=== PATIENT | female | born 1995 | race Caucasian/White ===

== ENCOUNTER 2019-02-18 17:30 | Emergency (ER) | payer OTHER ==
[2019-02-18 17:36] VITALS: BP 144/80; PULSE 84; RESP 18; TEMP 99
--- NOTE | 2019-02-18 21:19 | ED ---
Medical Decision Making - Medical Decision Making I did not need to assess patient, nurse performed task Disposition Clinical Impression: Encounter for blood-alcohol and blood-drug test Disposition: HOME SELF-CARE Condition: Good Is patient prescribed a controlled substance at d/c from ED?: No Referrals: Ricky Bullock MD [Primary Care Provider] - 1-2 days Time of Disposition: 21:18
== END 2019-02-18 18:17 | disposition home or self-care (01) ==
LOC: EC 17:30
DX: Z02.83 Encounter for blood-alcohol and blood-drug test (principal)

== ENCOUNTER 2019-08-09 13:00 | Emergency (ER) | payer OTHER ==
[2019-08-09 13:23] VITALS: RESP 16; TEMP 98.3
--- NOTE | 2019-08-09 14:10 | ED ---
Abdominal Pain HPI - General Chief Complaint: Abdominal Pain Stated Complaint: abdominal pain Time Seen by Provider: 08/09/19 14:07 Source: patient Mode of arrival: ambulatory Limitations: no limitations - History of Present Illness Initial Comments: 23-year-old female presented for chief complaint of abdominal bloating greasy stools right upper abdominal pain 6 days. Patient states she's had crampy upper abdominal pain that is worsening with food for the past 6 days. She states she has had chills but has not recorded a fever at home. She states she has taken her temperature. Patient states the cramping and bloating has persisted. Patient denies any bloody or melanotic stools. She does a chest pain shortness of breath. Patient denies any pelvic pain vaginal bleeding. Patient denies dysuria urgency frequency or flank pain. She describes the pain as crampy with some radiation towards the back. Denies any specific alleviating factors. Patient states she was so uncomfortable today while at school that she had to leave. Remaining review of system negative. Upon arrival patient appears well no signs of acute distress. Vital signs reveal elevation of blood pressure. - Related Data Home Medications Medication Instructions Recorded Confirmed Dony 1 tab PO HS 08/18/16 08/09/19 Allergies Allergy/AdvReac Type Severity Reaction Status Date / Time No Known Allergies Allergy Verified 08/09/19 13:32 Review of Systems ROS Statement: Those systems with pertinent positive or pertinent negative responses have been documented in the HPI. ROS Other: All systems not noted in ROS Statement are negative. Past Medical History Past Medical History: No Reported History History of Any Multi-Drug Resistant Organisms: None Reported Past Surgical History: Tonsillectomy Additional Past Surgical History / Comment(s): jaw surgery Past Psychological History: No Psychological Hx Reported Smoking Status: Never smoker Past Alcohol Use History: Occasional Past Drug Use History: None Reported General Exam - General Exam Comments Initial Comments: General: The patient is awake and alert, in no distress, and does not appear acutely ill. Eye: +3 mm pupils are equal, round and reactive to light, extra-ocular movements are intact. No nystagmus. There is normal conjunctiva bilaterally. No signs of icterus. Ears, nose, mouth and throat: There are moist mucous membranes and no oral lesions. Neck: The neck is supple, there is no tenderness or JVD. Cardiovascular: There is a regular rate and rhythm. No murmur, rub or gallop is appreciated. Respiratory: Lungs are clear to auscultation, respirations are non-labored, breath sounds are equal. No wheezes, stridor, rales, or rhonchi. Gastrointestinal: Soft, non-distended, abdomen is tender to palpation of the right upper quadrant without masses or organomegaly noted. There is no rebound or guarding present. Bowel sounds are unremarkable. Positive Alejandro sign. Musculoskeletal: Normal ROM, no tenderness. Strength 5/5. Sensation intact. Radial pulses equal bilaterally 2+. Neurological: A&O x 3. CN II-XII intact grossly, There are no obvious motor or sensory deficits. Coordination appears grossly intact. Speech is normal. Skin: Skin is warm and dry and no rashes or lesions are noted. Psychiatric: Cooperative, appropriate mood & affect, normal judgment. Limitations: no limitations Course Vital Signs 08/09/19 08/09/19 13:20 16:32 Temperature 98.3 F Pulse Rate 80 87 Respiratory 16 16 Rate Blood Pressure 144/93 131/76 O2 Sat by Pulse 99 99 Oximetry Medical Decision Making - Medical Decision Making 23 year female presents emergency department for evaluation of bloating abdominal pain 6 days. Patient has had greasy stools. Patient right upper quadrant tenderness and Alejandro sign. No fevers. Vital signs stable. Ultrasound revealed cholelithiasis with sludge and previous. I discussed the case with him provider Dr. Price including laboratory studies, imaging results, patient history and examination findings. He recommended outpatient surgical follow-up. I did personally contact patients preferred surgeons office staff, to arrange close f/u. They scheduled patient for 08/10/19 at 1030AM. Patient appears stable, there is no signs of acute cholecystitis including peristolic fluid, white count increase in alkaline phosphatase AST and ALTs and feel patient is stable for discharge with outpatient follow-up. Return Prevacid including worsening pain, fevers, or any other concerning signs or symptoms the patient return to the emergency department. She is agreeable to this care plan discharge at this time. - Lab Data Result diagrams: 08/09/19 14:55 08/09/19 14:55 Lab Results 08/09/19 08/09/19 08/09/19 Range/Units 14:00 14:00 14:55 WBC 10.3 (3.8-10.6) k/uL RBC 4.33 (3.80-5.40) m/uL Hgb 12.3 (11.4-16.0) gm/dL Hct 36.9 (34.0-46.0) % MCV 85.2 (80.0-100.0) fL MCH 28.4 (25.0-35.0) pg MCHC 33.3 (31.0-37.0) g/dL RDW 12.7 (11.5-15.5) % Plt Count 213 (150-450) k/uL Neutrophils % 81 % Lymphocytes % 11 % Monocytes % 5 % Eosinophils % 1 % Basophils % 0 % Neutrophils # 8.4 H (1.3-7.7) k/uL Lymphocytes # 1.1 (1.0-4.8) k/uL Monocytes # 0.5 (0-1.0) k/uL Eosinophils # 0.1 (0-0.7) k/uL Basophils # 0.0 (0-0.2) k/uL Sodium (137-145) mmol/L Potassium (3.5-5.1) mmol/L Chloride (98-107) mmol/L Carbon Dioxide (22-30) mmol/L Anion Gap mmol/L BUN (7-17) mg/dL Creatinine (0.52-1.04) mg/dL Est GFR (CKD-EPI)AfAm (>60 ml/min/1.73 sqM) Est GFR (CKD-EPI)NonAf (>60 ml/min/1.73 sqM) Glucose (74-99) mg/dL Calcium (8.4-10.2) mg/dL Total Bilirubin (0.2-1.3) mg/dL AST (14-36) U/L ALT (9-52) U/L Alkaline Phosphatase (38-126) U/L Total Protein (6.3-8.2) g/dL Albumin (3.5-5.0) g/dL Lipase (23-300) U/L Urine Color Yellow Urine Appearance Cloudy H (Clear) Urine pH 5.5 (5.0-8.0) Ur Specific [place] 1.022 (1.001-1.035) Urine Protein Trace H (Negative) Urine Glucose (UA) Negative (Negative) Urine Ketones Trace H (Negative) Urine Blood Trace H (Negative) Urine Nitrite Negative (Negative) Urine Bilirubin Negative (Negative) Urine Urobilinogen <2.0 (<2.0) mg/dL Ur Leukocyte Esterase Negative (Negative) Urine RBC 2 (0-5) /hpf Urine WBC 3 (0-5) /hpf Ur Squamous Epith Cells 5 H (0-4) /hpf Urine Bacteria Occasional H (None) /hpf Urine Mucus Moderate H (None) /hpf Urine HCG, Qual Not Detected (Not Detectd) 08/09/19 Range/Units 14:55 WBC (3.8-10.6) k/uL RBC (3.80-5.40) m/uL Hgb (11.4-16.0) gm/dL Hct (34.0-46.0) % MCV (80.0-100.0) fL MCH (25.0-35.0) pg MCHC (31.0-37.0) g/dL RDW (11.5-15.5) % Plt Count (150-450) k/uL Neutrophils % % Lymphocytes % % Monocytes % % Eosinophils % % Basophils % % Neutrophils # (1.3-7.7) k/uL Lymphocytes # (1.0-4.8) k/uL Monocytes # (0-1.0) k/uL Eosinophils # (0-0.7) k/uL Basophils # (0-0.2) k/uL Sodium 139 (137-145) mmol/L Potassium 3.7 (3.5-5.1) mmol/L Chloride 108 H (98-107) mmol/L Carbon Dioxide 21 L (22-30) mmol/L Anion Gap 10 mmol/L BUN 6 L (7-17) mg/dL Creatinine 0.61 (0.52-1.04) mg/dL Est GFR (CKD-EPI)AfAm >90 (>60 ml/min/1.73 sqM) Est GFR (CKD-EPI)NonAf >90 (>60 ml/min/1.73 sqM) Glucose 93 (74-99) mg/dL Calcium 9.0 (8.4-10.2) mg/dL Total Bilirubin 0.3 (0.2-1.3) mg/dL AST 27 (14-36) U/L ALT 20 (9-52) U/L Alkaline Phosphatase 67 (38-126) U/L Total Protein 7.2 (6.3-8.2) g/dL Albumin 3.9 (3.5-5.0) g/dL Lipase 56 (23-300) U/L Urine Color Urine Appearance (Clear) Urine pH (5.0-8.0) Ur Specific [place] (1.001-1.035) Urine Protein (Negative) Urine Glucose (UA) (Negative) Urine Ketones (Negative) Urine Blood (Negative) Urine Nitrite (Negative) Urine Bilirubin (Negative) Urine Urobilinogen (<2.0) mg/dL Ur Leukocyte Esterase (Negative) Urine RBC (0-5) /hpf Urine WBC (0-5) /hpf Ur Squamous Epith Cells (0-4) /hpf Urine Bacteria (None) /hpf Urine Mucus (None) /hpf Urine HCG, Qual (Not Detectd) Disposition Clinical Impression: Cholelithiasis Disposition: HOME SELF-CARE Condition: Good Instructions (If sedation given, give patient instructions): Cholecystitis (ED), Gallstones (ED) Additional Instructions: Please use medication as discussed. Please follow-up with general surgery tomorrow at 10:30AM in office--if symptoms worsen, or develop fever return to the ER. Please return to emergency room if the symptoms increase or worsen or for any other concerns. Is patient prescribed a controlled substance at d/c from ED?: No Referrals: Ricky Bullock MD [Primary Care Provider] - 1-2 days Antonina Lopez MD [STAFF PHYSICIAN] - 1-2 days Time of Disposition: 16:18
[2019-08-09 14:26] LABS: Appearance,Urine Cloudy (Clear); Bacteria,Urine Occasional /hpf; Bilirubin,Urine Negative (Negative); Blood,Urine Trace (Negative); Color,Urine Yellow; Glucose,Urine (UA) Negative (Negative); Ketones,Urine Trace (Negative); Leukocyte Esterase,Urine Negative (Negative); Mucus,Urine Moderate /hpf; Nitrite,Urine Negative (Negative); PH, Urine 5.5 (5.0-8.0); Protein,Urine Trace (Negative); RBC,Urine 2 /hpf (0-5); Specific Gravity,Urine 1.022 (1.001-1.035); Squamous Epithelial Cell,Urine 5 /hpf (0-4); Urobilinogen,Urine <2.0 mg/dL (<2.0); WBC,Urine 3 /hpf (0-5)
[2019-08-09 15:10] LABS: Basophils % (A) 0 %; Eosinophils # (A) 0.1 k/uL (0-0.7); Eosinophils % (A) 1 %; HCT 36.9 % (34.0-46.0); HGB 12.3 gm/dL (11.4-16.0); Lymphocytes # (A) 1.1 k/uL (1.0-4.8); Lymphocytes % (A) 11 %; MCH 28.4 pg (25.0-35.0); MCHC 33.3 g/dL (31.0-37.0); MCV 85.2 fL (80.0-100.0); Mean Platelet Volume 8.5; Monocytes # (A) 0.5 k/uL (0-1.0); Monocytes % (A) 5 %; Neutrophils # (A) 8.4 k/uL (1.3-7.7); Neutrophils % (A) 81 %; Platelet Count 213 k/uL (150-450); RBC 4.33 m/uL (3.80-5.40); RDW 12.7 % (11.5-15.5); WBC 10.3 k/uL (3.8-10.6)
[2019-08-09 15:17] LABS: ALT 20 U/L (9-52); AST 27 U/L (14-36); African American GFR (CKD) >90 (>60 ml/min/1.73 sqM); Albumin 3.9 g/dL (3.5-5.0); Alkaline Phosphatase 67 U/L (38-126); Anion Gap 10 mmol/L; Blood Urea Nitrogen 6 mg/dL (7-17); Carbon Dioxide 21 mmol/L (22-30); Chloride 108 mmol/L (98-107); Glucose 93 mg/dL (74-99); Potassium 3.7 mmol/L (3.5-5.1); Sodium 139 mmol/L (137-145); Total Bilirubin 0.3 mg/dL (0.2-1.3); Total Protein 7.2 g/dL (6.3-8.2)
--- NOTE | 2019-08-09 15:42 | US ---
EXAMINATION TYPE: US abdomen limited DATE OF EXAM: 08/09/2019 COMPARISON: NONE CLINICAL HISTORY: right sided tenderness, cramping/bloating, diarrhea. EXAM MEASUREMENTS: Liver Length: 15.0 cm Gallbladder Wall: 0.3 cm CBD: 0.4 cm Right Kidney: 11.5 x 3.6 x 4.4 cm Pancreas: visualized portions wnl Liver: wnl Gallbladder: There are a couple of small stones with shadowing, and there is floating debris/sludge within. Evidence for sonographic Alejandro's sign: Yes CBD: wnl Right Kidney: No hydronephrosis or masses seen There is no ascites. IMPRESSION: Cholelithiasis
[2019-08-09 16:33] VITALS: BP 131/76; PULSE 87
== END 2019-08-09 16:35 | disposition home or self-care (01) ==
LOC: EC 13:00
DX: K80.20 Calculus of gallbladder without cholecystitis without obstruction (principal); Z79.3 Long term (current) use of hormonal contraceptives
CPT/HCPCS: 36415; 76705; 80053; 81001; 81025; 83690; 85025; 99284

== ENCOUNTER 2019-08-16 07:02 | Day surgery (SDC) | payer OTHER ==
[2019-08-12 09:01] VITALS: BMI 25.0
--- NOTE | 2019-08-15 20:31 | P.GSHP ---
History of Present Illness H&P Date: 08/16/19 CHIEF COMPLAINT: Cholecystitis HISTORY OF PRESENT ILLNESS: The patient is a 23-year-old female who presents with history of epigastric including right upper quadrant abdominal pain. She underwent diagnostic studies for her gallbladder. Separately her clinical picture was consistent with cholecystitis. Now she presents for surgical intervention. PAST MEDICAL HISTORY: Please see list PAST SURGICAL HISTORY: Please see list MEDICATIONS: Please see list ALLERGIES: Denies. SOCIAL HISTORY: No illicit drug use or recent tobacco use FAMILY HISTORY: Pertinent for gallbladder disease REVIEW OF ORGAN SYSTEMS: CONSTITUTIONAL: No reports of fevers or chills. HEENT: Denies any troubles with the vision or hearing. ENDOCRINE: No reports of hypothyroidism. No diabetes. RESPIRATORY: No recent pneumonias. CARDIOVASCULAR: Denies chest pain or palpitations GI: No blood in stools or constipation. MUSCULOSKELETAL: Has occasional joint pain including back pain. NEURO: No seizure disorders or headaches. No recent stroke. PSYCH: No depression or suicidal ideation. GENITOURINARY: No active blood in urine. No urinary hesitancy. HEMATOLOGIC: No personal or family history of DVTs or pulmonary emboli. SKIN: No skin cancer. PHYSICAL EXAM: VITAL SIGNS: Afebrile vital signs stable GENERAL: Well-developed pleasant in no acute distress. HEENT: No scleral icterus. Extraocular movements grossly intact. Moist buccal mucosa. NECK: Supple without lymphadenopathy. CHEST: Unlabored respirations. Equal bilateral excursions. CARDIOVASCULAR: Regular rate regular rhythm rhythm. Distal 2+ pulses. ABDOMEN: Soft, nondistended. Tender along the epigastrium and right upper quadrant. MUSCULOSKELETAL: No clubbing, cyanosis, or edema. NEURO: Cranial nerves II to XII within normal limits. No focal or lateralizing signs. PSYCH: Alert and oriented to person, place and time. SKIN: Well-perfused good skin turgor. ASSESSMENT: 1. Epigastric and right upper quadrant abdominal pain 2. Chronic cholecystitis 3. Symptomatic gallstones. PLAN: 1. Will need a robotic cholecystectomy possible open. Benefits and risks were described. 2. Heparin for DVT prophylaxis 5000 units. 3. Antibiotic prophylaxis. Past Medical History Past Medical History: No Reported History Additional Past Medical History / Comment(s): migraines, gallstones, History of Any Multi-Drug Resistant Organisms: None Reported Past Surgical History: Tonsillectomy Additional Past Surgical History / Comment(s): jaw surgery Past Anesthesia/Blood Transfusion Reactions: No Reported Reaction Smoking Status: Never smoker - Past Family History Mother Family Medical History: No Reported History Medications and Allergies Home Medications Medication Instructions Recorded Confirmed Type Dony 1 tab PO HS 08/18/16 08/12/19 History Allergies Allergy/AdvReac Type Severity Reaction Status Date / Time No Known Allergies Allergy Verified 08/12/19 08:55
[~2019-08-16 07:02] MED LIST: ACETAMINOPHEN IV (For NPO) 1,000 MG in EMPTY BAG 1 BAG IVPB ONE; HEPARIN SODIUM,PORCINE 5,000 UNIT/ML 1 ML VIAL SQ ONE; INDOCYANINE GREEN 25 MG VIAL IV STA
[2019-08-16 07:28] VITALS: TEMP 99.2
[2019-08-16] MEDS ORDERED: ONDANSETRON 4 MG/2 ML VIAL IVP ONE (07:28)
[2019-08-16] MEDS ORDERED: LACTATED RINGERS 1,000 ML IV ONE ×2 (07:28→10:15)
[2019-08-16] MEDS ORDERED: DEXAMETHASONE SOD PHOS (MDV) 100 MG/10 ML VIAL IVP ONE (07:29)
[2019-08-16] MEDS ORDERED: LIDOCAINE 1% 20 ML VIAL (10MG/ML) FOR IV START INTRADERMA ONE (07:29)
[2019-08-16 07:43] LABS: Basophils # (A) 0.1 k/uL (0-0.2); Basophils % (A) 0 %; Eosinophils # (A) 0.2 k/uL (0-0.7); Eosinophils % (A) 1 %; HCT 37.2 % (34.0-46.0); HGB 12.8 gm/dL (11.4-16.0); Lymphocytes # (A) 1.7 k/uL (1.0-4.8); Lymphocytes % (A) 12 %; MCHC 34.3 g/dL (31.0-37.0); MCV 81.7 fL (80.0-100.0); Mean Platelet Volume 8.6; Monocytes # (A) 0.4 k/uL (0-1.0); Monocytes % (A) 3 %; Neutrophils # (A) 11.6 k/uL (1.3-7.7); Neutrophils % (A) 82 %; Platelet Count 273 k/uL (150-450); RBC 4.55 m/uL (3.80-5.40); RDW 12.3 % (11.5-15.5); WBC 14.1 k/uL (3.8-10.6)
[2019-08-16 07:48] LABS: ALT 21 U/L (9-52); AST 26 U/L (14-36); African American GFR (CKD) >90 (>60 ml/min/1.73 sqM); Albumin 4.1 g/dL (3.5-5.0); Alkaline Phosphatase 68 U/L (38-126); Anion Gap 11 mmol/L; Blood Urea Nitrogen 6 mg/dL (7-17); Calcium 9.4 mg/dL (8.4-10.2); Carbon Dioxide 21 mmol/L (22-30); Chloride 108 mmol/L (98-107); Glucose 100 mg/dL (74-99); Potassium 3.6 mmol/L (3.5-5.1); Sodium 140 mmol/L (137-145); Total Bilirubin 0.6 mg/dL (0.2-1.3); Total Protein 7.5 g/dL (6.3-8.2)
[2019-08-16] MEDS ORDERED: MIDAZOLAM (PF) 2 MG/2 ML VIAL IVP ONE (07:50)
[2019-08-16] MEDS ORDERED: GLYCOPYRROLATE 0.2 MG/ML 2 ML VIAL ONE (07:59)
[2019-08-16] MEDS ORDERED: SUCCINYLCHOLINE CHLORIDE 100 MG/5 ML SYR IV ONE (07:59)
[2019-08-16] MEDS ORDERED: ceFAZolin 1,000 MG VIAL ONE (07:59)
[2019-08-16] MEDS ORDERED: INDOCYANINE GREEN 25 MG VIAL IV ONE (07:59)
[2019-08-16] MEDS ORDERED: ROCURONIUM BROMIDE 10 MG/ML 10 ML VIAL IV ONE (07:59)
[2019-08-16] MEDS ORDERED: fentaNYL (PF) 50 MCG/ML 2 ML AMP ONE (07:59)
[2019-08-16] MEDS ORDERED: NEOSTIGMINE 1 MG/ML 10 ML VIAL ONE (07:59)
[2019-08-16] MEDS ORDERED: KETOROLAC 30 MG/ML 1 ML VIAL ONE (07:59)
[2019-08-16] MEDS ORDERED: MIDAZOLAM 2 MG/2 ML VIAL ONE (07:59)
[2019-08-16] MEDS ORDERED: PROPOFOL 10 MG/ML 20 ML VIAL IV ONE (07:59)
[2019-08-16] MEDS ORDERED: LIDOCAINE 1% INJ 10MG/ML (20 ML MDV) ONE (07:59)
[2019-08-16] MEDS ORDERED: LIDOCAINE 1%-EPI 1:100,000 20 ML VIAL SQ ONE (08:22)
[2019-08-16] MEDS: HYDROmorphone 1 MG/ML 1 ML SYRINGE IVP ONE ×2 (09:19→09:37)
--- NOTE | 2019-08-16 09:30 | P.OP ---
Date of Procedure: 08/16/19 Description of Procedure: SURGEON: ANTONINA LOPEZ MD PREOPERATIVE DIAGNOSES: 1. Right upper quadrant abdominal pain 2. History of gallstones 3. History of migraines POSTOPERATIVE DIAGNOSES: 1. Right upper quadrant abdominal pain 2. History of gallstones 3. History of migraines 4. Peritoneal adhesions, right upper quadrant OPERATION: 1. Robotic-assisted da Myriam Xi laparoscopic lysis of adhesions 2. Robotic-assisted da Myriam Xi laparoscopic cholecystectomy, multiport with FIREFLY ESTIMATED BLOOD LOSS: 5 mL. SPECIMENS REMOVED: Gallbladder. COMPLICATIONS: None. OPERATIVE FINDINGS: 1. Chronic cholecystitis 2. Console time 19 minutes INDICATIONS: The patient is a 23-year-old female who presents with cholelcystitis. Surgical intervention with a laparoscopic cholecystectomy was described at length including injury to the biliary tree, bleeding, infection, need for further surgery. Informed consent was obtained. Robotic assisted laparoscopic approach was described. Benefits and risks of the procedure including but not limited to bleeding, infection, injury to the biliary tree was described. Informed consent was obtained. DESCRIPTION OF PROCEDURE: Patient was brought to the operating room, placed in supine position. After general induction, the abdomen had been prepped and draped in standard sterile fashion. The robotic da Myriam XI system was primed. After a timeout protocol was performed, the patient had been prepped and draped in standard sterile fashion. The patient was injected with indocyanine green. A 5 mm 0 degrees laparoscopic trocar entry was performed along the left upper quadrant. The abdomen insufflated to 15 mmHg pressure which was tolerated well. Diagnostic laparoscopy demonstrated no injury to bowel viscera or mesentery. The liver surface was unremarkable. Next, two 8 mm robotic ports were placed along the right upper abdomen. The camera 8-mm port was maintained along the epigastrium. Another 8 mm port was placed along the left upper abdominal wall after exchanging the 5 mm port. Please note that the ports were placed at least 10 to 15 cm away from the target anatomy of the gallbladder. The robot was docked along the left lateral abdomen. The patient was repositioned in reverse Trendelenburg position. Using a grasper for arm 3, a grasper for arm 4, including hook cautery for arm 1, the robotic system was docked and primed as described. Instruments were interchanged by the dairy and food laboratory assistant including hook cautery, Bovie cautery and clip appliers. I had sat at the console. Moderate peritoneal adhesions of omentum to the body and infundibulum the gallbladder was found to addressed using hook cautery. Lysis of adhesions occurred over 15 minutes. The gallbladder fundus was retracted over the dome of the liver. Initial attention was brought to the infundibulum which was gently retracted in the inferior lateral approach. Using a grasper, the cystic duct including the cystic artery was carefully skeletonized. FIREFLY was used to identify the cystic artery and cystic structures. A critical view of safety was obtained. Large PLASTIC clips were used throughout the entire case. Using a clip teasel gig operator 2 clips were placed proximally, and 1 clip was placed between the infundibulum and cystic duct and divided using cautery. Next, the cystic artery was similarly clipped and cauterized. Electro-Bovie cautery was used to remove the gallbladder from the hepatic fossa. Hemostasis was checked and found to be adequate. The robot was undocked. I re-scrubbed into the case. Using a 10 mm Endo Catch bag via the left upper quadrant incision, the specimen was removed from the abdominal cavity. All pneumoperitoneum instruments were evacuated from the abdominal cavity. The incisions were reapproximated using 4-0 Monocryl in an interrupted subcuticular fashion. Fascial defects were less than 8 mm in size. Please note along the trocar sites, local anesthetic was placed as a field block prior to insertion of all instruments. Liquid glue was applied to the skin. At the end of the procedure needle, sponge, and instrument count had been verified correct by the registered nurse surgical services. The patient was transferred to postanesthesia care unit in stable condition. Intraoperative films were shared with the patient's family who were very pleased with the level of care. Plan - Discharge Summary Discharge Rx Participant: Yes New Discharge Prescriptions: New Ibuprofen [Motrin] 600 mg PO Q8HR PRN #30 tab PRN Reason: Pain Acetaminophen Tab [Tylenol Tab] 500 mg PO Q6H PRN #30 tablet PRN Reason: Pain No Action Juleber 1 tab PO HS Discharge Medication List Juleber 1 tab PO HS 08/18/16 [History] Acetaminophen Tab [Tylenol Tab] 500 mg PO Q6H PRN #30 tablet 08/16/19 [Rx] Ibuprofen [Motrin] 600 mg PO Q8HR PRN #30 tab 08/16/19 [Rx] Follow up Appointment(s)/Referral(s): Antonina Lopez MD [STAFF PHYSICIAN] - 08/24/19 Patient Instructions/Handouts: Laparoscopic Cholecystectomy (DC), Low Fat Diet (DC) Activity/Diet/Wound Care/Special Instructions: No lifting over 10 pounds for 10 days until 08/26/2019. May shower. No bath tub soaks until 08/26/2019. No return to work or school until cleared by surgeon. Use ice for incision. Discharge Disposition: HOME SELF-CARE
[2019-08-16 12:03] VITALS: RESP 20
[2019-08-16 13:10] VITALS: BP 119/74; PULSE 80
[2019-08-16] MEDS ORDERED: ACETAMINOPHEN TAB 500 MG TAB PO ONE (13:33)
== END 2019-08-16 14:20 | disposition home or self-care (01) ==
LOC: OR 07:02
PROVIDERS: ATTEND Surgery Plastic and Reconstructive Surgery
DX: K80.10 Calculus of gallbladder with chronic cholecystitis without obstruction (principal); G43.909 Migraine, unspecified, not intractable, without status migrainosus; Z79.3 Long term (current) use of hormonal contraceptives; K66.0 Peritoneal adhesions (postprocedural) (postinfection)
CPT/HCPCS: 81025; 88304; 80053; 85025; 47562; J2250 ×2; J1644; J2710; J2405; J0690; J2001; J3010; J1885; J1170; J1100; J0131; J0330; J2704

== ENCOUNTER → 2020-12-26 | Outpatient (CLI) | payer BC ==
[2020-12-26 21:37] LABS: Basophils # (A) 0.03 X 10*3/uL (0.00-0.10); Basophils % (A) 0.7 %; Eosinophils # (A) 0.07 X 10*3/uL (0.04-0.35); Eosinophils % (A) 1.6 %; HCT 38.7 % (37.2-46.3); HGB 12.4 g/dL (12.0-15.0); Lymphocytes # (A) 1.39 X 10*3/uL (0.90-5.00); Lymphocytes % (A) 31.9 %; MCH 27.3 pg (27.0-32.0); MCV 85.1 fL (80.0-97.0); Monocytes # (A) 0.45 X 10*3/uL (0.20-1.00); Monocytes % (A) 10.3 %; Neutrophils # (A) 2.41 X 10*3/uL (1.80-7.70); Neutrophils % (A) 55.3 %; Platelet Count 173 X 10*3/uL (140-440); RBC 4.55 X 10*6/uL (4.10-5.20); RDW 12.8 % (11.5-14.5); WBC 4.36 X 10*3/uL (4.50-10.00)
[2020-12-26 22:11] LABS: DNA Double-Stranded NEGATIVE (NEGATIVE); Gliadin AB IgA, Deaminated NEGATIVE (NEGATIVE); Gliadin AB IgA, Unit 3.1 U/mL; Gliadin AB IgG, Deaminated NEGATIVE (NEGATIVE)
[2020-12-26 22:12] LABS: Egg White IgE <0.10 kU/L
[2020-12-26 22:13] LABS: Codfish IgE <0.10 kU/L; Peanut IgE <0.10 kU/L; Soybean IgE <0.10 kU/L
[2020-12-26 22:14] LABS: Clam IgE <0.10 kU/L; Shrimp IgE <0.10 kU/L; Walnut IgE (Food) <0.10 kU/L
[2020-12-26 22:15] LABS: Scallop IgE <0.10 kU/L
[2020-12-26 22:21] LABS: African American GFR (CKD) 103.7 (60.0-200.0); Albumin 4.7 g/dL (3.80-4.90); Albumin/Globulin Ratio 1.96 (1.60-3.17); Anion Gap 9.6 mmol/L (4.00-12.00); BUN/Creat Ratio 13.33 Ratio (12.00-20.00); C Reactive Protein, High Sens 2.87 mg/L (0.000-3.000); Calcium 9.5 mg/dL (8.7-10.3); Carbon Dioxide 23.4 mmol/L (21.6-31.8); Globulin 2.4 g/dL (1.6-3.3); Non-African American GFR(CKD) 89.5 (60.0-200.0); Potassium 4.1 mmol/L (3.5-5.5); Total Bilirubin 0.4 mg/dL (0.3-1.2); Total Protein 7.1 g/dL (6.2-8.2)
[2020-12-26 22:29] LABS: T4, Free (Free Thyroxine) 1.1 ng/dL (0.80-1.80)
[2020-12-26 23:02] LABS: Erythrocyte Sedimentation Rate 12 mm/Hr (0-20)
== END | disposition home or self-care (01) ==
LOC: LABWHC1 13:52
PROVIDERS: ATTEND Family Medicine
DX: Z13.220 Encounter for screening for lipoid disorders (principal); R53.82 Chronic fatigue, unspecified; R63.4 Abnormal weight loss; R61 Generalized hyperhidrosis; R10.9 Unspecified abdominal pain
CPT/HCPCS: 36415; 80053; 82150; 82306; 82607; 82785; 83516; 84439; 84443; 84481; 85025; 85652; 86003; 86038; 86039; 86141; 86225; 86480; 86800

== ENCOUNTER 2021-05-23 22:28 | Emergency (ER) | payer BC ==
[2021-05-23 22:32] VITALS: TEMP 98.4
--- NOTE | 2021-05-23 23:12 | ED ---
General Adult HPI - General Chief complaint: Vaginal Bleeding Stated complaint: bleeding,5 weeks Time Seen by Provider: 05/23/21 22:36 Source: patient Mode of arrival: ambulatory Limitations: no limitations - History of Present Illness Initial comments: 25 year-old female patient who is approximately 5-6 weeks presents to the emergency department today for evaluation of vaginal bleeding. Patient states she started having light spotting that was pink in color about a week ago. Found that she did have a yeast infection and has been doing vaginal suppositories given to her by her physician. States today the blood changed to bright red in color and she noticed small blood clots. She has not had to wear a pad, states she has been having blood on the toilet paper only. She reports mild suprapubic cramping. Denies any low back pain. Denies any fever or chills per denies any hematuria, dysuria, urinary frequency, urinary urgency. Patient denies any fever, chills, nausea, vomiting, diarrhea, constipation, or any other complaints. - Related Data Home Medications Medication Instructions Recorded Confirmed Juleber 1 tab PO HS 08/18/16 08/16/19 Previous Rx's Medication Instructions Recorded Acetaminophen Tab [Tylenol Tab] 500 mg PO Q6H PRN #30 tablet 08/16/19 Ibuprofen [Motrin] 600 mg PO Q8HR PRN #30 tab 08/16/19 Allergies Allergy/AdvReac Type Severity Reaction Status Date / Time No Known Allergies Allergy Verified 08/12/19 08:55 Review of Systems ROS Statement: Those systems with pertinent positive or pertinent negative responses have been documented in the HPI. ROS Other: All systems not noted in ROS Statement are negative. Past Medical History Past Medical History: No Reported History Additional Past Medical History / Comment(s): migraines, gallstones, History of Any Multi-Drug Resistant Organisms: None Reported Past Surgical History: Tonsillectomy Additional Past Surgical History / Comment(s): jaw surgery Past Anesthesia/Blood Transfusion Reactions: No Reported Reaction Past Psychological History: No Psychological Hx Reported Smoking Status: Never smoker Past Alcohol Use History: Occasional Past Drug Use History: None Reported - Past Family History Mother Family Medical History: No Reported History General Exam Limitations: no limitations General appearance: alert, in no apparent distress, other (Physical well- developed, well-nourished adult female patient in no acute distress. Vital signs upon presentation temperature 98.4F, pulse 66, respirations 18, blood pressure 127/82, pulse ox 100% on room air.) ENT exam: Present: normal exam, normal oropharynx, mucous membranes moist Respiratory exam: Present: normal lung sounds bilaterally. Absent: respiratory distress, wheezes, rales, rhonchi, stridor Cardiovascular Exam: Present: regular rate, normal rhythm, normal heart sounds. Absent: systolic murmur, diastolic murmur, rubs, gallop, clicks GI/Abdominal exam: Present: soft, normal bowel sounds. Absent: distended, tenderness, guarding, rebound, rigid Neurological exam: Present: alert, oriented X3, CN II-XII intact Psychiatric exam: Present: normal affect, normal mood Skin exam: Present: warm, dry, intact, normal color. Absent: rash Course Vital Signs 05/23/21 05/24/21 22:30 00:37 Temperature 98.4 F Pulse Rate 66 71 Respiratory 18 16 Rate Blood Pressure 127/82 123/72 O2 Sat by Pulse 100 98 Oximetry Medical Decision Making - Medical Decision Making 25 year-old female patient present for evaluation of vaginal bleeding with passage of tiny blood clots. She states she is 5-6 weeks . LMP beginning of April. . Physical examination is unremarkable. Labs reviewed and showed hCG level 51. ABO is A+. Ultrasound obtained and showed possible tiny intrauterine gestational sac. No evidence for ectopic . Did discuss findings with the patient. Discussed possibility of miscarriage. She is given lab slip to have hormone redrawn in 2 days. She is instructed to contact her OBGYN for further instructions tomorrow morning. Return parameters were discussed in detail. She verbalizes understanding and agrees with this plan. Case discussed with my attending Dr. Choe. - Lab Data Result diagrams: 05/23/21 22:57 05/23/21 22:57 Lab Results 05/23/21 05/23/21 05/23/21 Range/Units 22:57 22:57 22:57 WBC 7.6 (3.8-10.6) k/uL RBC 4.56 (3.80-5.40) m/uL Hgb 13.2 (11.4-16.0) gm/dL Hct 40.2 (34.0-46.0) % MCV 88.1 (80.0-100.0) fL MCH 29.0 (25.0-35.0) pg MCHC 32.9 (31.0-37.0) g/dL RDW 13.4 (11.5-15.5) % Plt Count 201 (150-450) k/uL MPV 9.9 Neutrophils % 66 % Lymphocytes % 25 % Monocytes % 5 % Eosinophils % 2 % Basophils % 1 % Neutrophils # 5.0 (1.3-7.7) k/uL Lymphocytes # 1.9 (1.0-4.8) k/uL Monocytes # 0.4 (0-1.0) k/uL Eosinophils # 0.1 (0-0.7) k/uL Basophils # 0.1 (0-0.2) k/uL Sodium 140 (137-145) mmol/L Potassium 3.8 (3.5-5.1) mmol/L Chloride 105 (98-107) mmol/L Carbon Dioxide 26 (22-30) mmol/L Anion Gap 9 mmol/L BUN 5 L (7-17) mg/dL Creatinine 0.67 (0.52-1.04) mg/dL Est GFR (CKD-EPI)AfAm >90 (>60 ml/min/1.73 sqM) Est GFR (CKD-EPI)NonAf >90 (>60 ml/min/1.73 sqM) Glucose 98 (74-99) mg/dL Calcium 9.2 (8.4-10.2) mg/dL Total Bilirubin 0.2 (0.2-1.3) mg/dL AST 29 (14-36) U/L ALT 18 (4-34) U/L Alkaline Phosphatase 64 (38-126) U/L Total Protein 6.8 (6.3-8.2) g/dL Albumin 4.3 (3.5-5.0) g/dL HCG, Quant 51.9 mIU/mL Urine Color Yellow Urine Appearance Clear (Clear) Urine pH 7.5 (5.0-8.0) Ur Specific [place] 1.001 (1.001-1.035) Urine Protein Trace H (Negative) Urine Glucose (UA) Negative (Negative) Urine Ketones Negative (Negative) Urine Blood Large H (Negative) Urine Nitrite Negative (Negative) Urine Bilirubin Negative (Negative) Urine Urobilinogen <2.0 (<2.0) mg/dL Ur Leukocyte Esterase Moderate H (Negative) Urine RBC 2 (0-5) /hpf Urine WBC 4 (0-5) /hpf Ur Squamous Epith Cells <1 (0-4) /hpf Urine Bacteria Occasional H (None) /hpf Blood Type Blood Type Recheck Bld Type Recheck Status 05/23/21 Range/Units 22:57 WBC (3.8-10.6) k/uL RBC (3.80-5.40) m/uL Hgb (11.4-16.0) gm/dL Hct (34.0-46.0) % MCV (80.0-100.0) fL MCH (25.0-35.0) pg MCHC (31.0-37.0) g/dL RDW (11.5-15.5) % Plt Count (150-450) k/uL MPV Neutrophils % % Lymphocytes % % Monocytes % % Eosinophils % % Basophils % % Neutrophils # (1.3-7.7) k/uL Lymphocytes # (1.0-4.8) k/uL Monocytes # (0-1.0) k/uL Eosinophils # (0-0.7) k/uL Basophils # (0-0.2) k/uL Sodium (137-145) mmol/L Potassium (3.5-5.1) mmol/L Chloride (98-107) mmol/L Carbon Dioxide (22-30) mmol/L Anion Gap mmol/L BUN (7-17) mg/dL Creatinine (0.52-1.04) mg/dL Est GFR (CKD-EPI)AfAm (>60 ml/min/1.73 sqM) Est GFR (CKD-EPI)NonAf (>60 ml/min/1.73 sqM) Glucose (74-99) mg/dL Calcium (8.4-10.2) mg/dL Total Bilirubin (0.2-1.3) mg/dL AST (14-36) U/L ALT (4-34) U/L Alkaline Phosphatase (38-126) U/L Total Protein (6.3-8.2) g/dL Albumin (3.5-5.0) g/dL HCG, Quant mIU/mL Urine Color Urine Appearance (Clear) Urine pH (5.0-8.0) Ur Specific [place] (1.001-1.035) Urine Protein (Negative) Urine Glucose (UA) (Negative) Urine Ketones (Negative) Urine Blood (Negative) Urine Nitrite (Negative) Urine Bilirubin (Negative) Urine Urobilinogen (<2.0) mg/dL Ur Leukocyte Esterase (Negative) Urine RBC (0-5) /hpf Urine WBC (0-5) /hpf Ur Squamous Epith Cells (0-4) /hpf Urine Bacteria (None) /hpf Blood Type A Positive Blood Type Recheck No Previous Record Bld Type Recheck Status ABR ONLY - Radiology Data Radiology results: report reviewed, image reviewed Ultrasound was obtained. Report was reviewed in its entirety. Impression by Dr. Canela shows possible tiny intrauterine gestational sac. Follow-up exam recommended 10-14 days to confirm fetus. I do not see evidence for ectopic . Disposition Clinical Impression: Vaginal bleeding affecting early Disposition: HOME SELF-CARE Condition: Good Instructions (If sedation given, give patient instructions): Threatened Miscarriage (ED), (ED) Additional Instructions: Follow-up to have your hormone level be drawn in 2 days. Call your OBGYN in the morning for further instructions and possible sooner appointment. Return to the emergency department for any new, worsening, or concerning symptoms. Is patient prescribed a controlled substance at d/c from ED?: No Referrals: Ricky Bullock MD [Primary Care Provider] - 1-2 days Time of Disposition: 00:59
[2021-05-23 23:19] LABS: Appearance,Urine Clear (Clear); Bacteria,Urine Occasional /hpf; Bilirubin,Urine Negative (Negative); Blood,Urine Large (Negative); Color,Urine Yellow; Glucose,Urine (UA) Negative (Negative); Ketones,Urine Negative (Negative); Leukocyte Esterase,Urine Moderate (Negative); Nitrite,Urine Negative (Negative); PH, Urine 7.5 (5.0-8.0); Protein,Urine Trace (Negative); RBC,Urine 2 /hpf (0-5); Specific Gravity,Urine 1.001 (1.001-1.035); Squamous Epithelial Cell,Urine <1 /hpf (0-4); Urobilinogen,Urine <2.0 mg/dL (<2.0); WBC,Urine 4 /hpf (0-5)
[2021-05-23 23:21] LABS: Basophils # (A) 0.1 k/uL (0-0.2); Basophils % (A) 1 %; Eosinophils # (A) 0.1 k/uL (0-0.7); Eosinophils % (A) 2 %; HCT 40.2 % (34.0-46.0); HGB 13.2 gm/dL (11.4-16.0); Lymphocytes # (A) 1.9 k/uL (1.0-4.8); Lymphocytes % (A) 25 %; MCHC 32.9 g/dL (31.0-37.0); MCV 88.1 fL (80.0-100.0); Mean Platelet Volume 9.9; Monocytes # (A) 0.4 k/uL (0-1.0); Monocytes % (A) 5 %; Neutrophils % (A) 66 %; Platelet Count 201 k/uL (150-450); RBC 4.56 m/uL (3.80-5.40); RDW 13.4 % (11.5-15.5); WBC 7.6 k/uL (3.8-10.6)
[2021-05-23 23:26] LABS: ALT 18 U/L (4-34); AST 29 U/L (14-36); African American GFR (CKD) >90 (>60 ml/min/1.73 sqM); Albumin 4.3 g/dL (3.5-5.0); Alkaline Phosphatase 64 U/L (38-126); Anion Gap 9 mmol/L; Blood Urea Nitrogen 5 mg/dL (7-17); Calcium 9.2 mg/dL (8.4-10.2); Carbon Dioxide 26 mmol/L (22-30); Chloride 105 mmol/L (98-107); Glucose 98 mg/dL (74-99); Non-African American GFR(CKD) >90 (>60 ml/min/1.73 sqM); Potassium 3.8 mmol/L (3.5-5.1); Sodium 140 mmol/L (137-145); Total Bilirubin 0.2 mg/dL (0.2-1.3); Total Protein 6.8 g/dL (6.3-8.2)
[2021-05-23 23:43] LABS: HCG,Quantitative Serum 51.9 mIU/mL
--- NOTE | 2021-05-24 00:15 | US ---
EXAMINATION TYPE: Transabdominal DATE OF EXAM: 05/23/2021 11:55 PM COMPARISON: NONE CLINICAL HISTORY: Vag bleeding early 5-6 weeks. Vaginal bleeding in early . . EXAM PERFORMED: Transvaginal (TV) and Transabdominal (TA) EXAM MEASUREMENTS: GESTATIONAL AGE / DATING Physician Established: Not yet established. Dates by LMP: (4 weeks/ 3 days) EDC: 01/27/2022 Dates by First Scan: This is first scan. Dates by Current Scan for: Possible gestational sac seen only, measures out of range. MATERNAL ANATOMY Uterus: 7.5 x 4.7 x 3.7 cm. Anteverted. Right Ovary: 3.1 x 2.4 x 2.3 cm. Complex area seen: 2.1 x 1.5 x 1.2 cm. Left Ovary: 2.7 x 2.0 x 1.4 cm. Anechoic area seen: 1.1 x 1.1 x 0.6 cm. Hypoechoic-complex area seen with peripheral vascularity: 1.0 x 1.1 x 0.5 cm. Post CDS / Adnexa: Fluid seen in CDS. Presence of free fluid: Fluid seen in CDS: 0.9 x 2.1 x 1.0 cm. Presence of corpus luteal cyst: Possible within left ovary as described above (hypoechoic-complex are a). Presence of subchorionic bleed: Not seen. GESTATION / SURVEY MSD: 0.30 cm. (OOR) IUP: Possible gestational sac only seen at this time. Date of LMP: 04/22/2021 Beta HcG (if available): 51.9 mIU/mL IMPRESSION: There is possible tiny intrauterine gestational sac. Follow-up exam recommended in 10-14 days to conf irm a fetus. I do not see evidence for ectopic .
[2021-05-24 00:39] VITALS: BP 123/72; PULSE 71; RESP 16
== END 2021-05-24 01:09 | disposition home or self-care (01) ==
LOC: EC 22:28
DX: O20.9 Hemorrhage in early pregnancy, unspecified (principal); Z3A.01 Less than 8 weeks gestation of pregnancy
CPT/HCPCS: 36415; 76801; 76817; 80053; 81001; 84702; 85025; 86900; 86901; 99284

== ENCOUNTER → 2021-05-25 | Outpatient (CLI) | payer BC | END | disposition home or self-care (01) | LOC: LABWHC1 07:01 | PROVIDERS: ATTEND Nurse Practitioner | DX: O46.90 Antepartum hemorrhage, unspecified, unspecified trimester (principal); Z3A.00 Weeks of gestation of pregnancy not specified | CPT/HCPCS: 36415; 84702 ==

== ENCOUNTER → 2021-06-05 | Outpatient (CLI) | payer BC | END | disposition home or self-care (01) | LOC: LABWHC1 14:52 | PROVIDERS: ATTEND Obstetrics & Gynecology Obstetrics | DX: O02.1 Missed abortion (principal); Z3A.00 Weeks of gestation of pregnancy not specified | CPT/HCPCS: 36415; 84702 ==

== ENCOUNTER → 2021-10-20 | Outpatient (CLI) | payer BC ==
[2021-10-20 18:28] LABS: Prolactin 30.7 ng/mL (2.800-29.200); T4, Free (Free Thyroxine) 1.25 ng/dL (0.800-1.800)
== END | disposition home or self-care (01) ==
LOC: LABWHC1 10-19 14:36
PROVIDERS: ATTEND Obstetrics & Gynecology Obstetrics
DX: N96 Recurrent pregnancy loss (principal); D68.52 Prothrombin gene mutation
CPT/HCPCS: 36415; 81291; 83036; 84146; 84439; 84443

== ENCOUNTER → 2021-12-21 | Outpatient (CLI) | payer BC ==
--- NOTE | 2021-12-21 08:22 | MR ---
EXAMINATION TYPE: MR brain wo con DATE OF EXAM: 12/21/2021 COMPARISON: CT brain 2016 HISTORY: Elevated Prolactin TECHNIQUE: Multiplanar, multisequence imaging of the brain and brainstem is performed without IV cont rast. FINDINGS: Diffusion weighted images demonstrate no evidence of a recent infarct or other diffusion abnormality. There is no extraaxial fluid collection or significant white matter signal abnormality. The ventricu lar system and cisternal spaces are normal in size and appearance. The brain volume is age appropria te. Midline structures demonstrate normal morphology. Pituitary gland appears within normal limits. Supra sellar cistern is maintained. The craniocervical junction appears within normal limits. Normal vascul ar flow voids are present. The visualized sinuses are clear and the globes are intact. IMPRESSION: Unremarkable study.
== END | disposition home or self-care (01) ==
LOC: RADMRIMAIN 07:08
PROVIDERS: ATTEND Obstetrics & Gynecology Obstetrics
DX: E22.9 Hyperfunction of pituitary gland, unspecified (principal)
CPT/HCPCS: 70551

== ENCOUNTER 2022-08-25 06:19 | Outpatient (CLI) | payer BC ==
[2022-08-25 06:44] LABS: Appearance,Urine CLOUDY (Clear); Color,Urine YELLOW; Glucose,Urine (UA) Negative (Negative); Ketones,Urine Negative (Negative); Protein,Urine Negative (Negative)
[2022-08-25 06:45] LABS: Bilirubin,Urine Negative (Negative); Blood,Urine Negative (Negative); Leukocyte Esterase,Urine Large (Negative); Nitrite,Urine Negative (Negative); RBC,Urine 2 /hpf (0-5); Squamous Epithelial Cell,Urine 3 /hpf (0-4); Urobilinogen,Urine <2.0 mg/dL (<2.0); WBC,Urine 37 /hpf (0-5)
[2022-08-25 06:46] LABS: Mucus,Urine Rare /hpf
[2022-08-25] MEDS ORDERED: LACTATED RINGERS 1,000 ML IV ONE (07:30)
[2022-08-25] MEDS ORDERED: ACETAMINOPHEN IV (For NPO) 1,000 MG in EMPTY BAG 1 BAG IVPB ONE (08:00)
[2022-08-25 08:03] LABS: Basophils % (A) 0 %; Eosinophils % (A) 0 %; HGB 10.5 gm/dL (11.4-16.0); Lymphocytes # (A) 0.9 k/uL (1.0-4.8); Lymphocytes % (A) 9 %; MCH 30.4 pg (25.0-35.0); MCHC 34.9 g/dL (31.0-37.0); MCV 87.2 fL (80.0-100.0); Monocytes # (A) 0.5 k/uL (0-1.0); Monocytes % (A) 5 %; Neutrophils # (A) 8.2 k/uL (1.3-7.7); Neutrophils % (A) 83 %; RBC 3.44 m/uL (3.80-5.40); RDW 12.5 % (11.5-15.5); WBC 9.8 k/uL (3.8-10.6)
[2022-08-25 08:36] LABS: Platelet Count 93 k/uL (150-450)
[2022-08-25 08:37] LABS: Large Platelets Present; RBC Morphology Normal
[2022-08-25 09:29] VITALS: BP 113/60; PULSE 103; RESP 18; TEMP 99.5
--- NOTE | 2022-09-03 09:47 | P.MSEPDOC ---
Presenting Problems - Arrival Data Date of Arrival on Unit: 08/25/22 Time of Arrival on Unit: 06:19 Mode of Transport: Ambulatory - Complaint OB-Reason for Admission/Chief Complaint: Pain Comment: Right flank pain, fever, body aches, Hx UTi in Medical History - Information : 1 Para: 0 Term: 0 : 0 Abortions: Spontaneous or Elective: 0 Number of Living Children: 0 - Gestational Age Gestational Age by MICA (wks/days): 31 Weeks and 2 Days Review of Systems - Review of Systems Constitutional: No problems Breast: No problems ENT: No problems Cardiovascular: No problems Respiratory: No problems Gastrointestinal: No problems Genitourinary: No problems Musculoskeletal: No problems Neurological: No problems Skin: No problems Vital Signs - Temperature Temperature: 99.5 F Temperature Source: Oral - Pulse Right Sitting Brachial Pulse Rate: 103 Pulse Assessment Method: Automatic Cuff - Respirations Respiratory Rate: 18 Oxygen Delivery Method: Room Air O2 Sat by Pulse Oximetry: 96 - Blood Pressure Right Arm Sitting Blood Pressure: 113/60 Blood Pressure Mean: 77 Blood Pressure Source: Automatic Cuff Medical Screen Scoring - Assessment - Baby A Baseline FHR: 135 Heart Rate - NICHD Category: Category I (Normal) NST: Reactive Physician Notification - Physician Notified Physician Notified Date: 08/25/22 Physician Notified Time: 09:15 Physician: Antonina Romero Order Received: Yes - Notification Comment Comment: Ok to dc home. Pt desires dc home for baby shower. Pt given script for Keflex TID. Follow up Tu with Dr Finney as scheduled. Maternal Triage Index - Maternal Triage Index Presenting for scheduled procedure w/no complaint: No - Stat/Priority 1 Stat Priority 1: No - Urgent/Priority 2 Urgent Priority 2: No - Prompt/Priority 3 Prompt Priority 3: No - Non-Urgent/Priority 4 Non-Urgent Priority 4: Yes Criteria Met for Priority 4: Fever, flank pain, body aches, hx UTI. IV fluids today,UA & cx, Offirmev, Rocephin. Dc home with Keflex TID Disposition - Disposition OB Disposition: Physician follow up in office, Discharge to home Discharge Date: 08/25/22 Discharge Time: 09:29 I agree with the RN Medical Screening Exam: Yes Case reviewed; plan agreed upon as documented in EMR&OBIX.: Yes Diagnosis: URINARY TRACT INFECTION, SITE NOT SPECIFIED
== END 2022-08-25 09:25 | disposition home or self-care (01) ==
LOC: FBPOP 06:19
PROVIDERS: ATTEND Obstetrics & Gynecology
DX: O23.43 Unspecified infection of urinary tract in pregnancy, third trimester (principal); N39.0 Urinary tract infection, site not specified; Z3A.31 31 weeks gestation of pregnancy
CPT/HCPCS: 59025; 99214; 96361; 96365; 96367; 36415; 85025; 81001; 87086; J0696; J0131

== ENCOUNTER 2022-08-27 03:15 | Outpatient (CLI) | payer BC ==
[2022-08-27] MEDS ORDERED: ACETAMINOPHEN TAB 325 MG TAB PO STA (04:13)
[2022-08-27 04:30] LABS: Appearance,Urine Cloudy (Clear); Bacteria,Urine Occasional /hpf; Bilirubin,Urine Negative (Negative); Blood,Urine Negative (Negative); Color,Urine Yellow; Glucose,Urine (UA) Negative (Negative); Ketones,Urine Negative (Negative); Leukocyte Esterase,Urine Moderate (Negative); Mucus,Urine Rare /hpf; Nitrite,Urine Negative (Negative); Protein,Urine Trace (Negative); RBC,Urine 2 /hpf (0-5); Specific Gravity,Urine 1.013 (1.001-1.035); Squamous Epithelial Cell,Urine 14 /hpf (0-4); Urobilinogen,Urine <2.0 mg/dL (<2.0); WBC,Urine 18 /hpf (0-5)
[2022-08-27 05:12] LABS: Basophils % (A) 0 %; Eosinophils # (A) 0.1 k/uL (0-0.7); Eosinophils % (A) 1 %; HCT 28.8 % (34.0-46.0); Lymphocytes # (A) 1.1 k/uL (1.0-4.8); Lymphocytes % (A) 12 %; MCH 30.9 pg (25.0-35.0); MCHC 34.7 g/dL (31.0-37.0); Mean Platelet Volume 12.9; Monocytes # (A) 0.5 k/uL (0-1.0); Monocytes % (A) 6 %; Neutrophils # (A) 6.8 k/uL (1.3-7.7); Neutrophils % (A) 78 %; RBC 3.24 m/uL (3.80-5.40); RDW 12.5 % (11.5-15.5); WBC 8.7 k/uL (3.8-10.6)
[2022-08-27 05:46] LABS: Large Platelets Present; Platelet Count 95 k/uL (150-450)
[2022-08-27 08:12] VITALS: BP 117/61; PULSE 100; RESP 22; TEMP 99.3
--- NOTE | 2022-09-04 10:27 | P.MSEPDOC ---
Presenting Problems - Arrival Data Date of Arrival on Unit: 08/27/22 Time of Arrival on Unit: 03:15 Mode of Transport: Ambulatory - Complaint OB-Reason for Admission/Chief Complaint: Other Comment: Fever, body aches Medical History - Information : 1 Para: 0 Term: 0 : 0 Abortions: Spontaneous or Elective: 0 Number of Living Children: 1 - Gestational Age Gestational Age by MICA (wks/days): 31 Weeks and 4 Days Review of Systems - Review of Systems Constitutional: Fever, Fatigue Breast: No problems ENT: No problems Cardiovascular: No problems Respiratory: No problems Gastrointestinal: No problems Genitourinary: No problems Musculoskeletal: No problems Neurological: No problems Skin: No problems Vital Signs - Temperature Temperature: 99.3 F Temperature Source: Oral - Pulse Supine Brachial Pulse Rate: 100 Pulse Assessment Method: Automatic Cuff - Respirations Respiratory Rate: 22 Oxygen Delivery Method: Room Air O2 Sat by Pulse Oximetry: 97 - Blood Pressure Right Arm Supine Blood Pressure: 117/61 Blood Pressure Mean: 79 Blood Pressure Source: Automatic Cuff Medical Screen Scoring - Assessment - Baby A Baseline FHR: 140 Heart Rate - NICHD Category: Category I (Normal) NST: Reactive Physician Notification - Physician Notified Physician Notified Date: 08/27/22 Physician Notified Time: 04:00 Physician: Bhumika Cochran Order Received: Yes - Notification Comment Comment: Given report on pt, presenting with body aches and fever 99.3, visit from Friday UA and CBC results and treatments from friday, Orders for UA, CBC, PO tylenol, influenza and covid tests. Results read after tests, negative covid, influenza UA and CBC results. Gave orders to discharge with instructions to increase fluids and keep taking prescribed meds Maternal Triage Index - Maternal Triage Index Presenting for scheduled procedure w/no complaint: No - Stat/Priority 1 Stat Priority 1: No - Urgent/Priority 2 Urgent Priority 2: No - Prompt/Priority 3 Prompt Priority 3: No - Non-Urgent/Priority 4 Non-Urgent Priority 4: Yes Criteria Met for Priority 4: Non-Urgent symptoms of Disposition - Disposition OB Disposition: Discharge to home Discharge Date: 08/27/22 Discharge Time: 05:40 I agree with the RN Medical Screening Exam: Yes Physician's MSE Comment: I have neither seen nor examined the patient Case reviewed; plan agreed upon as documented in EMR&OBIX.: Yes Diagnosis: RELATED CONDITIONS, UNSPECIFIED, THIRD TRIMESTER
== END 2022-08-27 05:40 | disposition home or self-care (01) ==
LOC: FBPOP 03:15
PROVIDERS: ATTEND Obstetrics & Gynecology
DX: O26.93 Pregnancy related conditions, unspecified, third trimester (principal); Z3A.31 31 weeks gestation of pregnancy
CPT/HCPCS: 59025; 81001; 85025; 87086; 87502; 87635; 99213

== ENCOUNTER 2022-10-09 12:36 | Inpatient (IN) | payer BC ==
[2022-10-09] MEDS ORDERED: LIDOCAINE 0.5% (PF) 5 MG/ML (50 ML SDV) SQ PRN (14:07)
[2022-10-09] MEDS ORDERED: TERBUTALINE 1 MG/ML VIAL SQ PRN (14:07)
[2022-10-09] MEDS: LACTATED RINGERS 1,000 ML IV SCH ×2 (14:32→17:23)
[2022-10-09 14:45] LABS: Basophils % (A) 0 %; Eosinophils # (A) 0.1 k/uL (0-0.7); Eosinophils % (A) 1 %; HCT 33.5 % (34.0-46.0); Lymphocytes # (A) 2.1 k/uL (1.0-4.8); Lymphocytes % (A) 17 %; MCH 31.2 pg (25.0-35.0); MCHC 35.7 g/dL (31.0-37.0); MCV 87.3 fL (80.0-100.0); Mean Platelet Volume 14.8; Monocytes # (A) 0.5 k/uL (0-1.0); Monocytes % (A) 4 %; Neutrophils # (A) 9.2 k/uL (1.3-7.7); Neutrophils % (A) 76 %; RBC 3.84 m/uL (3.80-5.40); RDW 12.7 % (11.5-15.5); WBC 12.1 k/uL (3.8-10.6)
[2022-10-09 15:09] LABS: Platelet Count 102 k/uL (150-450)
[2022-10-09] MEDS ORDERED: BUTORPHANOL 1 MG/ML 1 ML VIAL IV PRN (15:42)
--- NOTE | 2022-10-09 15:47 | P.HPOB ---
History of Present Illness H&P Date: 10/09/22 Chief Complaint: 37-5/7, early active labor the patient is a 26-year-old 3 para 0020 admitted at 37-5/7 weeks as determined by last menstrual period and confirmed by second trimester ultrasound. She is admitted with documented cervical change in triage going from 4 cm to 5 cm over the course of an hour. Contractions are relatively regular. All signs reassuring with a category 1 heart rate tracing. Her pregnancies been complicated only by a finding of gestational thrombocytopenia. Platelet count on labor and delivery today is 101,000. There been no other complications and group B strep status is negative. Obstetrical history: 3 para 0020 with 2 previous early miscarriages not requiring D&C. Current statistics are listed in history present illness. EDC of 10/25/2022 was established by last menstrual period and confirmed by second trimester ultrasound. Laboratory workup demonstrates a blood type of A+ with a negative antibody screen. Rubella status is immune. The remainder of the laboratory workup was within normal limits. One hour Glucola was normal and group B strep status is negative. Gynecologic history: Unremarkable with no history of any infections to include STDs. Review of Systems review of systems is confined to history of present illness. Past Medical History Past Medical History: No Reported History Additional Past Medical History / Comment(s): migraines, gallstones, History of Any Multi-Drug Resistant Organisms: None Reported Past Surgical History: Tonsillectomy Additional Past Surgical History / Comment(s): jaw surgery Past Anesthesia/Blood Transfusion Reactions: No Reported Reaction Past Psychological History: No Psychological Hx Reported Smoking Status: Never smoker Past Alcohol Use History: Occasional Past Drug Use History: None Reported - Past Family History Mother Family Medical History: No Reported History Medications and Allergies Home Medications Medication Instructions Recorded Confirmed Type Aspirin 81 mg PO DAILY 08/25/22 10/09/22 History Levothyroxine Sodium [Synthroid] 25 mcg PO DAILY 08/25/22 10/09/22 History Vit No.179/Iron/Folic 1 each PO DAILY 08/25/22 10/09/22 History [ Tablet] Allergies Allergy/AdvReac Type Severity Reaction Status Date / Time No Known Allergies Allergy Verified 10/09/22 12:41 Exam Vital Signs Temp Pulse Resp BP Pulse Ox 10/09/22 14:21 98.1 F 71 16 133/69 96 Intake and Output 10/09/22 10/09/22 10/09/22 06:59 14:59 22:59 Other: Weight 90.265 kg in general, this is a well-developed, well-nourished white female in no acute distress. Her heart has a regular rhythm and rate without murmur. Her lungs are clear to auscultation bilaterally in all dos santos. Her abdomen is gravid, nondistended, has normal active bowel sounds, soft, nontender, and without any palpable masses aside from the uterine fundus. Her extremities without any cyanosis, clubbing, or edema and are nontender to palpation bilaterally. Digital cervical examination and straights her cervix to be approximate 5 cm dilated, 60-70% effaced, the vertex in presentation at -2 station. Artificial rupture of membranes is carried out demonstrating clear fluid. Results Result Diagrams: 10/09/22 14:30 Abnormal Lab Results - Last 24 Hours (Table) 10/09/22 Range/Units 14:30 WBC 12.1 H (3.8-10.6) k/uL Hct 33.5 L (34.0-46.0) % Plt Count 102 L (150-450) k/uL Neutrophils # 9.2 H (1.3-7.7) k/uL Assessment and Plan (1) Active labor at term Current Visit: Yes Status: Acute Code(s): NPR6469 - SNOMED Code(s): 88340663 (2) Gestational thrombocytopenia Current Visit: Yes Status: Acute Code(s): O99.119 - OTH DIS OF BLD/BLD-FORM ORG/IMMUN MECHNSM COMP PREG,UNSP TRI; D69.6 - THROMBOCYTOPENIA, UNSPECIFIED SNOMED Code(s): 493792965 Plan: the patient is admitted for active management of labor. She is undergone artificial rupture of membranes. Should she made no significant progress over the next couple of hours, Pitocin augmentation will be added. She will have close maternal and surveillance and expectant management will be practiced. She is a good candidate for either IV or epidural analgesia, whichever she may choose. Her platelet count is sufficient for placement of epidural.
[2022-10-09] MEDS ORDERED: SODIUM CHLORIDE 0.9% 100 ML BAG ONE (17:02)
[2022-10-09] MEDS ORDERED: fentaNYL (PF) 50 MCG/ML 5 ML AMP ONE (17:02)
[2022-10-09] MEDS ORDERED: ROPIVACAINE 5 MG/ML 20 ML AMPULE ONE (17:02)
[2022-10-09] MEDS ORDERED: OXYTOCIN 30 UNITS/500 ML NS 30 UNIT in SALINE 1 500ML.BAG IV SCH (23:45)
[2022-10-09] MEDS ORDERED: diphenhydrAMINE 50 MG/ML 1 ML VIAL IVP PRN ×2 (23:46)
[2022-10-09] MEDS ORDERED: HYDROcodone/APAP 7.5-325MG 1 EACH TAB PO PRN (23:46)
[2022-10-09] MEDS ORDERED: LANOLIN CREAM 5 GM TUBE TOPICAL PRN (23:46)
[2022-10-09] MEDS ORDERED: ZOLPIDEM 5 MG TAB PO PRN (23:46)
[2022-10-09] MEDS ORDERED: SIMETHICONE 80 MG CHEWABLE PO PRN (23:46)
[2022-10-09] MEDS ORDERED: HYDROCORTISONE 2.5% RECTAL CREAM 30 GM TUBE RECTAL PRN (23:46)
[2022-10-09] MEDS ORDERED: diphenhydrAMINE 50 MG CAP PO PRN (23:46)
[2022-10-09] MEDS ORDERED: BENZOCAINE/MENTHOL SPRAY 1 GM/SPRAY AEROSOL TOPICAL PRN (23:46)
[2022-10-09] MEDS ORDERED: HYDROcodone/APAP 5-325MG 1 EACH TAB PO PRN (23:46)
[2022-10-09] MEDS ORDERED: diphenhydrAMINE 25 MG CAP PO PRN (23:46)
--- NOTE | 2022-10-09 23:50 | P.PROBDLV ---
Vaginal Delivery Note - . Vaginal Delivery Note: the patient is a 26-year-old 1 para 0 admitted at 37-5/7 weeks in early active labor with all signs reassuring, category 1 heart rate tracing. Her has been uncomplicated aside from the incidental finding of gestational thrombocytopenia. Platelet count on labor and delivery is 101,000 making epidural reasonable option. On labor and delivery, she had artificial rupture of membranes carried out demonstrating clear fluid. She made progress through the active phase of labor and had an epidural catheter placed approximate 6 and liters of dilation. She then had Pitocin augmentation started. She ultimately progressed to complete and pushed over the course of approximately 45 minutes to a normal spontaneous vaginal delivery of a viable 7 lbs. 1 oz. baby boy with Apgars of 9 at 1 minute and 10 at 5 minutes delivered in the left occiput anterior position. There was a loose nuchal cord 1 which was reduced while the head was on the perineum. The placenta was delivered spontaneously, intact, and grossly normal with a grossly normal three-vessel cord inserted approximately 2-3 cm from the center of the placenta. There was a right labial laceration approximate 1 cm beneath the clitoral torres which was repaired in standard fashion using 3-0 chromic catgut without difficulty. Estimated blood loss for the case is approximately 250 mL. There were no complications. All sponge, instrument, needle counts were correct. Both mother and are resting comfortably in recovery.
[2022-10-10] MEDS: IBUPROFEN 600 MG TAB PO PRN ×3 (00:03→19:37)
[2022-10-10 05:55] LABS: Basophils % (A) 0 %; Eosinophils # (A) 0.1 k/uL (0-0.7); Eosinophils % (A) 0 %; HCT 30.3 % (34.0-46.0); HGB 10.8 gm/dL (11.4-16.0); Lymphocytes % (A) 14 %; MCH 31.5 pg (25.0-35.0); MCHC 35.7 g/dL (31.0-37.0); MCV 88.4 fL (80.0-100.0); Mean Platelet Volume 15.7; Monocytes # (A) 0.7 k/uL (0-1.0); Monocytes % (A) 5 %; Neutrophils # (A) 11.9 k/uL (1.3-7.7); Neutrophils % (A) 80 %; Platelet Count 100 k/uL (150-450); RBC 3.43 m/uL (3.80-5.40); RDW 12.7 % (11.5-15.5); WBC 14.8 k/uL (3.8-10.6)
[2022-10-10] MEDS: SENNOSIDES-DOCUSATE SODIUM 1 EACH TAB PO SCH ×2 (09:02→20:03)
[2022-10-10] MEDS: ACETAMINOPHEN TAB 325 MG TAB PO PRN ×2 (09:02→16:50)
--- NOTE | 2022-10-10 09:38 | P.PNOBGVD ---
Subjective - Subjective Principal diagnosis: Spontaneous Vaginal Delivery Interval history: Patient doing well this morning. Ambulating, pain well controlled, tolerating PO, lochia minimal. without difficulty. Would like circumcision for her son. Denies chest pain, shortness of breath, fever, or chills. Patient reports: Reports appetite normal, Reports voiding normally, Reports pain well controlled, Reports ambulating normally : doing well, nursing well Objective - Latest Vital Signs Latest vital signs: Vital Signs Temp Pulse Resp BP Pulse Ox 10/10/22 09:07 98.2 F 64 16 110/63 10/10/22 04:00 98.5 F 60 16 114/67 97 10/10/22 01:32 97.8 F 73 16 117/55 10/10/22 01:02 97.9 F 72 16 132/66 10/10/22 00:32 97.7 F 69 16 125/64 10/10/22 00:17 97.0 F L 74 16 124/58 10/10/22 00:02 84 16 128/71 10/09/22 23:47 72 16 129/73 10/09/22 23:32 98.0 F 69 16 132/62 10/09/22 14:21 98.1 F 71 16 133/69 96 Intake and Output 10/09/22 10/10/22 10/10/22 22:59 06:59 14:59 Intake Total 175.067 Output Total 300 370 Balance -300 -194.933 Intake: Intake, IV Titration 175.067 Amount Oxytocin 30 Units/500 ml 175.067 Ns 30 unit In Saline 1 500ml.bag @ Per Protocol IV .Q0M [facility] Rx#:[id number] Output: Urine 300 Estimated Blood Loss 250 Output, Quantitative 120 Blood Loss Other: # Voids 1 - Exam Abdomen: Present: normal appearance, soft Uterus: Present: normal, firm - Labs Labs: Abnormal Lab Results - Last 24 Hours (Table) 10/09/22 10/10/22 Range/Units 14:30 05:05 WBC 12.1 H 14.8 H (3.8-10.6) k/uL RBC 3.43 L (3.80-5.40) m/uL Hgb 10.8 L (11.4-16.0) gm/dL Hct 33.5 L 30.3 L (34.0-46.0) % Plt Count 102 L 100 L (150-450) k/uL Neutrophils # 9.2 H 11.9 H (1.3-7.7) k/uL Assessment and Plan Assessment: 26 y/o PPD#1 s/p at 37.5 weeks. Plan: Meeting milestones appropriately. Delivered late yesterday evening, will plan for discharge home tomorrow morning. Plan for circumcision of infant tomorrow morning. Consent completed.
[2022-10-11] MEDS: ACETAMINOPHEN TAB 325 MG TAB PO PRN ×2 (02:55→15:28)
[2022-10-11] MEDS: IBUPROFEN 600 MG TAB PO PRN (08:06)
[2022-10-11] MEDS: SENNOSIDES-DOCUSATE SODIUM 1 EACH TAB PO SCH (08:07)
[2022-10-11 08:12] VITALS: RESP 16
--- NOTE | 2022-10-11 08:41 | P.PNOBGVD ---
Subjective - Subjective Principal diagnosis: Spontaneous Vaginal Delivery Interval history: The patient is doing well this morning and had no acute events overnight. She has no complaints this morning. She reports minimal lochia, passing flatus, voiding without difficulty, ambulating, and eating/drinking without nausea or vomiting. She is her without difficulty. She denies chest pain, shortness of breathing, fevers, or chills overnight. She denies pain or swelling in the legs. Patient reports: Reports appetite normal, Reports voiding normally, Reports pain well controlled, Reports ambulating normally [place]: doing well, nursing well Objective - Latest Vital Signs Latest vital signs: Vital Signs Temp Pulse Resp BP Pulse Ox 10/11/22 08:00 98.3 F 74 16 117/64 10/11/22 00:00 98.2 F 84 14 118/74 97 10/10/22 20:00 98.2 F 69 16 104/60 97 10/10/22 15:10 98.1 F 70 16 111/74 10/10/22 09:07 98.2 F 64 16 110/63 - Exam Extremities: Present: normal Abdomen: Present: normal appearance, soft Uterus: Present: normal, firm Assessment and Plan Assessment: 26 y/o PPD#2 s/p at 37.5 weeks. Plan: Meeting milestones appropriately. Discussed recommendation for 6 weeks of pelvic rest. Discussed risks of short interval pregnancies including labor and low weight. Discussed condom use if having sex prior 6 week appointment. Patient not sure about what kind of contraception she wants to use at this time and will revisit this topic at her [address] Finney. Discharge home today after circumcision.
--- NOTE | 2022-10-11 08:48 | P.DS ---
Providers Date of admission: 10/09/22 13:56 Expected date of discharge: 10/11/22 Attending physician: Pilar Finney Primary care physician: Stated None Hospital Course: 26 y/o s/p at 37.5 weeks to viable male . Patient met all milestones approrpiately and will be discharged home on day 2. Assessment: Meeting milestones appropriately. Discussed recommendation for 6 weeks of pelvic rest. Discussed risks of short interval pregnancies including labor and low weight. Discussed condom use if having sex prior 6 week appointment. Patient not sure about what kind of contraception she wants to use at this time and will revisit this topic at her [address] Finney. Patient Condition at Discharge: Good Plan - Discharge Summary Discharge Rx Participant: No New Discharge Prescriptions: New Ibuprofen [Motrin] 600 mg PO Q6HR PRN #30 tab PRN Reason: Moderate Pain (Scale 4 To 6) Acetaminophen Tab [Tylenol] 650 mg PO Q4HR PRN #30 tab PRN Reason: Mild Pain (Scale 1 To 3) Continue Levothyroxine Sodium [Synthroid] 25 mcg PO DAILY Vit No.179/Iron/Folic [ Tablet] 1 each PO DAILY Discontinued Aspirin 81 mg PO DAILY Discharge Medication List Levothyroxine Sodium [Synthroid] 25 mcg PO DAILY 08/25/22 [History] Vit No.179/Iron/Folic [ Tablet] 1 each PO DAILY 08/25/22 [History] Acetaminophen Tab [Tylenol] 650 mg PO Q4HR PRN #30 tab 10/11/22 [Rx] Ibuprofen [Motrin] 600 mg PO Q6HR PRN #30 tab 10/11/22 [Rx] Follow up Appointment(s)/Referral(s): Pilar Finney DO [Doctor of Osteopathic Medicine] - 6 Weeks Patient Instructions/Handouts: Depression (DC), Your Baby (DC), and the Working Mom (DC), Expression, Collection and Storage of Breast Milk (DC), How to Hold and Breastfeed Your Baby (DC), and Nipple Soreness (DC), and Breast Engorgement (DC), and Plugged Ducts (DC), How to Increase Your Milk Supply (DC), How to Tell if Your Baby is Getting Enough Breast Milk (DC), and Your Diet (DC), Normal Growth and Development of Newborns (DC), Jaundice in Newborns (DC), Vaginal Delivery (DC), Breast Care for the Mother (DC), Phototherapy for Jaundice in Newborns (DC) Activity/Diet/Wound Care/Special Instructions: Pelvic rest for 6 weeks. Activity as tolerated. Take medications as prescribed. Discharge Disposition: HOME SELF-CARE
[2022-10-11 15:33] VITALS: BP 118/64; PULSE 72; TEMP 98.4
== END 2022-10-11 17:45 | disposition home or self-care (01) | DRG 807 ==
LOC: FBPOP 12:36 → 4FBP 13:56
PROVIDERS: ADMIT Obstetrics & Gynecology; ATTEND Obstetrics & Gynecology Obstetrics
PROC: 0HQ9XZZ Repair Perineum Skin, External Approach (ICD-10-PCS; principal; 2022-10-09)
PROC: 10907ZC Drainage of Amniotic Fluid, Therapeutic from Products of Conception, Via Natural or Artificial Opening (ICD-10-PCS; principal; 2022-10-09)
PROC: 10E0XZZ Delivery of Products of Conception, External Approach (ICD-10-PCS; principal; 2022-10-09)
DX: O99.12 Other diseases of the blood and blood-forming organs and certain disorders involving the immune mechanism complicating childbirth (principal); Z37.0 Single live birth; O69.81X0 Labor and delivery complicated by cord around neck, without compression, not applicable or unspecified; D69.59 Other secondary thrombocytopenia; O70.0 First degree perineal laceration during delivery; Z3A.37 37 weeks gestation of pregnancy; Z79.890 Hormone replacement therapy; Z79.82 Long term (current) use of aspirin; Z28.21 Immunization not carried out because of patient refusal
CPT/HCPCS: 85025; 86850; 86900; 86901